=== PATIENT | female | born 1950 | race Caucasian/White ===

== ENCOUNTER 2022-12-16 00:14 | Emergency (ER) | payer OTHER ==
[~2022-12-16] VITALS: Ht 149.9 cm; Wt 51.7 kg
[~2022-12-16 00:14] MED LIST: INTESTINEX680 MG PO; LEVSIN/SL0.125 MG PO; TENORMIN50 MG; ZANTAC150 MG PO
[2022-12-16] MEDS ORDERED: NIFEDIPINE20 MG (00:33)
[2022-12-16] MEDS ORDERED: XANAX2 MG (00:33)
[2022-12-16] MEDS ORDERED: SYNTHROID50 MCG (00:33)
[2022-12-16 03:13] LABS: HEMATOCRIT 39.5 % (36.0-45.00); HEMOGLOBIN 13.3 g/dL (12.0-15.00); MEAN CELL VOLUME 82.5 fL (80.00-100.00); MEAN CORPUSCULAR HEMOGLOBIN 27.7 pg (27.00-32.0); MEAN CORPUSCULAR HGB CONC 33.6 g/dl (32.0-36.0); PLATELET COUNT 230 K/uL (150-450); RED BLOOD COUNT 4.79 M/uL (4.00-6.00); RED CELL DISTRIBUTION WIDTH 14.8 % (11.5-14.5)
[2022-12-16 03:48] LABS: PARTIAL THROMBOPLASTIN TIME 28.3 SECONDS (22.0-34.0)
[2022-12-16 03:51] LABS: ALBUMIN 3.7 gm/dL (3.4-5.0); ALKALINE PHOSPHATASE 69 U/L (50-136); ALT/SGPT 18 U/L (12-78); AST/SGOT 21 U/L (15-37); BILIRUBIN TOTAL 0.32 mg/dL (0.3-1.2); BILIRUBIN,CONJUGATED < 0.10 mg/dL (0.0-0.2); BLOOD UREA NITROGEN 14 mg/dL (7-18); BUN CREA RATIO 18 (7.0-25.0); CALCIUM 9.3 mg/dL (8.5-10.1); CARBON DIOXIDE 32 mEq/L (21-32); CHLORIDE 107 mmol/L (98-107); CREATININE SERUM 0.79 mg/dL (0.55-1.02); GFR 71.95; GLOBULINA 4.2 G/DL (2.4-3.5); GLUCOSE FASTING 99 mg/dL (65-100); OSMOLALITY SERUM 282 MOSM/KG (275-295); POTASSIUM 3.71 mEq/L (3.5-5.1); SODIUM 141 mmol/L (136-145); TOTAL PROTEIN 7.9 gm/dL (6.4-8.2)
[2022-12-16] MEDS ORDERED: PEPCID40 MG PO (08:10)
[2022-12-16] MEDS ORDERED: INTESTINEX680 M1 PO (08:10)
[2022-12-16] MEDS ORDERED: ONDANSETRON ODT4 MG PO (08:10)
[2022-12-16] MEDS ORDERED: LEVSIN/SL0.125 MG SL (08:10)
== END 2022-12-16 10:43 ==
LOC: ER 00:14
PROVIDERS: General Practice
DX: K52.9 Noninfective gastroenteritis and colitis, unspecified (principal); R10.9 Unspecified abdominal pain; Z88.8 Allergy status to other drugs, medicaments and biological substances; E03.9 Hypothyroidism, unspecified; I10 Essential (primary) hypertension; K29.70 Gastritis, unspecified, without bleeding
CPT/HCPCS: 36415; 74177; 96365; 96366; 99284; J2250; J3490; J7030; Q9965

== ENCOUNTER 2023-01-03 12:51 | Emergency (ER) | payer OTHER ==
[~2023-01-03] VITALS: Ht 149.9 cm; Wt 50.8 kg
[~2023-01-03 12:51] MED LIST changes: +INTESTINEX680 M1 PO; +LEVSIN/SL0.125 MG SL; +NIFEDIPINE20 MG; +ONDANSETRON ODT4 MG PO; +PEPCID40 MG PO; +SYNTHROID50 MCG; +XANAX2 MG
[2023-01-03 14:50] LABS: HEMOGLOBIN 12.8 g/dL (12.0-15.00); MEAN CELL VOLUME 83.9 fL (80.00-100.00); MEAN CORPUSCULAR HEMOGLOBIN 26.9 pg (27.00-32.0); PLATELET COUNT 280 K/uL (150-450); RED BLOOD COUNT 4.76 M/uL (4.00-6.00); RED CELL DISTRIBUTION WIDTH 14.6 % (11.5-14.5)
[2023-01-03 14:51] LABS: PH,URINE 6.5 (5.0-8.0); URINE APPEARANCE Clear; URINE BILIRRUBIN Negative (NEGATIVE); URINE BLOOD Negative; URINE COLOR Yellow; URINE GLUCOSE Negative (NEGATIVE); URINE LEUKOCYTE Negative; URINE NITRATE Negative; URINE PROTEIN Negative (NEGATIVE)
[2023-01-03 14:54] LABS: URINE BACTERIA 25.1 uL (0.0-1933); URINE EPITHELIAL CELLS 12.7 uL (0.0-38.8); URINE RBC 8.1 uL (0.0-20.8); URINE WBC 5.7 uL (0.0-23.2)
[2023-01-03 15:23] LABS: CALCIUM 8.7 mg/dL (8.5-10.1); CREATININE SERUM 0.69 mg/dL (0.55-1.02); GFR 84.11; POTASSIUM 3.64 mEq/L (3.5-5.1)
== END 2023-01-03 16:17 | disposition home or self-care (01) ==
LOC: ER 12:51
PROVIDERS: Emergency Medicine
DX: K29.70 Gastritis, unspecified, without bleeding (principal); Z88.6 Allergy status to analgesic agent; I10 Essential (primary) hypertension; E78.00 Pure hypercholesterolemia, unspecified; N28.1 Cyst of kidney, acquired
CPT/HCPCS: 36415; 76700; 96365; 96366; 99284; J3490; J7030

== ENCOUNTER 2023-06-05 01:23 | Emergency (ER) | payer OTHER ==
[~2023-06-05] VITALS: Ht 149.9 cm; Wt 50.8 kg
[2023-06-05] MEDS ORDERED: RINGERS SOLUTION,LACTATED 1,000 ML IV STA (03:08)
[2023-06-05] MEDS ORDERED: HYOSCYAMINE SULFATE 0.125 MG TAB.SUBL SL STA (03:09)
[2023-06-05] MEDS ORDERED: CEFAZOLIN SODIUM 1,000 MG VIAL IM STA (03:10)
[2023-06-05] MEDS ORDERED: KETOROLAC TROMETHAMINE 30 MG VIAL IV STA (03:10)
[2023-06-05] MEDS ORDERED: BISMUTH SUBSALICYLATE 524 MG/30 ML BLIST.PACK PO STA ×2 (03:17→06:08)
[2023-06-05] MEDS ORDERED: LOPERAMIDE HCL 2 MG CAPSULE PO STA ×2 (03:17→06:09)
[2023-06-05 04:44] LABS: HEMOGLOBIN 12.6 g/dL (12.0-15.00); MEAN CELL VOLUME 82.8 fL (80.00-100.00); MEAN CORPUSCULAR HEMOGLOBIN 27.5 pg (27.00-32.0); MEAN CORPUSCULAR HGB CONC 33.2 g/dl (32.0-36.0); PLATELET COUNT 255 K/uL (150-450); RED BLOOD COUNT 4.59 M/uL (4.00-6.00); RED CELL DISTRIBUTION WIDTH 14.3 % (11.5-14.5)
[2023-06-05 04:52] LABS: CALCIUM 8.5 mg/dL (8.5-10.1); CREATININE SERUM 0.68 mg/dL (0.55-1.02); GFR 85.54; POTASSIUM 3.4 mEq/L (3.5-5.1)
[2023-06-06] MEDS ORDERED: PEPCID AC20 MG PO (12:40)
[2023-06-06] MEDS ORDERED: CIPRO500 MG PO (12:40)
== END 2023-06-05 06:40 | disposition home or self-care (01) ==
LOC: ER 01:23
DX: R19.7 Diarrhea, unspecified (principal); Z88.8 Allergy status to other drugs, medicaments and biological substances
CPT/HCPCS: 36415; 96365; 96372; 99283; J0690; J1885

== ENCOUNTER 2023-06-06 09:02 | Emergency (ER) | payer OTHER ==
[~2023-06-06] VITALS: Ht 160 cm; Wt 68.0 kg
[2023-06-06] MEDS ORDERED: FAMOTIDINE/PF 20 MG in 0.9 % SODIUM CHLORIDE 8 ML IV PUSH STA (09:14)
[2023-06-06] MEDS ORDERED: METRONIDAZOLE/SODIUM CHLORIDE 500 MG/100 ML PIGGYBACK IV ONE (09:15)
[2023-06-06] MEDS ORDERED: DIPHENOXYLATE HCL/ATROPINE 1 UDTAB TABLET PO ONE (09:30)
[2023-06-06 09:43] LABS: HEMATOCRIT 34.2 % (36.0-45.00); HEMOGLOBIN 11.5 g/dL (12.0-15.00); MEAN CELL VOLUME 83.1 fL (80.00-100.00); MEAN CORPUSCULAR HGB CONC 33.7 g/dl (32.0-36.0); PLATELET COUNT 210 K/uL (150-450); RED BLOOD COUNT 4.11 M/uL (4.00-6.00); RED CELL DISTRIBUTION WIDTH 14.3 % (11.5-14.5)
[2023-06-06 10:27] LABS: BILIRUBIN TOTAL 0.43 mg/dL (0.3-1.2); CREATININE SERUM 0.62 mg/dL (0.55-1.02); GFR 95.16; GLOBULINA 3.7 G/DL (2.4-3.5); POTASSIUM 3.38 mEq/L (3.5-5.1); TOTAL PROTEIN 6.7 gm/dL (6.4-8.2)
[2023-06-06] MEDS ORDERED: PEPCID AC20 MG PO (12:40)
[2023-06-06] MEDS ORDERED: CIPRO500 MG PO (12:40)
== END 2023-06-06 13:01 | disposition home or self-care (01) ==
LOC: ER 09:02
PROVIDERS: General Practice
DX: R19.7 Diarrhea, unspecified (principal); Z20.822 Contact with and (suspected) exposure to COVID-19; I10 Essential (primary) hypertension; Z88.6 Allergy status to analgesic agent
CPT/HCPCS: 36415; 96365; 99282; J3490 ×2

== ENCOUNTER 2024-06-03 19:34 | Emergency (ER) | payer OTHER ==
[~2024-06-03] VITALS: Ht 149.9 cm; Wt 50.8 kg
[~2024-06-03 19:34] MED LIST changes: +CIPRO500 MG PO; +PEPCID AC20 MG PO
[2024-06-03] MEDS ORDERED: XANAX1 MG PO (20:10)
[2024-06-03] MEDS ORDERED: TENORMIN25 MG PO (20:10)
[2024-06-03] MEDS ORDERED: KETOROLAC TROMETHAMINE 30 MG VIAL IM STA (21:27)
== END 2024-06-03 21:39 | disposition home or self-care (01) ==
LOC: ER 19:34
DX: M94.0 Chondrocostal junction syndrome [Tietze] (principal); Z88.8 Allergy status to other drugs, medicaments and biological substances
CPT/HCPCS: 71046; 96372; 99283; J1885